=== PATIENT | female | born 1970 | race Caucasian/White ===

== ENCOUNTER → 2017-08-09 11:40 | Outpatient (CLI) | payer BC | END | disposition home or self-care (01) | LOC: D.MRI 11:40 | DX: M54.2 Cervicalgia (principal) ==

== ENCOUNTER 2018-06-30 05:35 | Day surgery (SDC) | payer BC ==
[2018-06-27 11:26] LABS: BASOPHILS 1.1 % (0-2); EOSINOPHILS 3.8 % (0-7); HEMATOCRIT 30.5 % (36.0-48.0); HEMOGLOBIN 9.2 g/dL (12-16); IMMATURE GRANULOCYTES 0.1 % (0-5); LYMPHOCYTES 21.9 % (15-50); MCH 21.8 pg (26.0-34.0); MCHC 30.2 g/dL (31.0-37.0); MCV 72.3 fL (80.0-100.0); MEAN PLATELET VOLUME 8.6 fL (7.4-10.4); NEUTROPHILS 65.1 % (40-80); PLATELET COUNT 368 10x3/uL (130-400); RBC 4.22 10x6/uL (4.00-5.40); RDW 16.7 % (11.5-14.5)
[2018-06-27 11:35] LABS: CALC OSMOLALITY 279 mosm/kg (275-300); CALCIUM 9.2 mg/dL (8.5-10.1); CARBON DIOXIDE 24.8 mmol/L (21.0-32.0); CHLORIDE - SERUM 102 mmol/L (98-107); CREATININE - SERUM 0.6 mg/dL (0.6-1.3); GLUCOSE 109 mg/dL (74-106); POTASSIUM - SERUM 4.3 mmol/L (3.5-5.1); SODIUM 138 mmol/L (136-145); UREA NITROGEN 20 mg/dL (7-18); eGFR NON AFRICAN AMERICAN > 90 mL/min (90-120)
[2018-06-30] VITALS (8 sets, daily range): BP systolic 100–121; BP diastolic 60–78; Ht 154.9 cm; Wt 52.7 kg
[~2018-06-30] VITALS: Ht 154.9 cm; Wt 52.7 kg
[~2018-06-30 05:35] MED LIST: OMEPRAZOLE20 M1 PO; TOPROL XL25 MG PO
[2018-06-30] MEDS ORDERED: IBUPROFEN400 MG PO (05:42)
[2018-06-30 06:08] LABS: HCG URINE NEGATIVE (NEGATIVE)
[2018-06-30] MEDS ORDERED: IBUPROFEN800 MG PO (11:20)
[2018-06-30] MEDS ORDERED: OXYCODONE-APAP1 T10 PO (11:20)
[2018-06-30] MEDS ORDERED: TOPROL XL25 MG PO (11:21)
--- NOTE | 2018-06-30 12:01 | NUR ---
SITTING UP IN CHAIR EATING LUNCH. ZOFRAN 4 MG GIVEN FOR NAUSEA.
--- NOTE | 2018-06-30 13:50 | NUR ---
DISCHARGE TO HOME. NO QUESTIONS NOTED.
--- NOTE | 2018-06-30 17:43 | OP ---
PATIENT NAME: ANTOLIN SPENCER MEDICAL RECORD: [id number] :70 LOCATION:D.OPS ADMISSION DATE: SURGEON: RAULITO CANELA MD DATE OF OPERATION: 06/30/2018 PREOPERATIVE DIAGNOSES: 1. Dysfunctional uterine bleeding. 2. Dysmenorrhea. POSTOPERATIVE DIAGNOSES: 1. Dysfunctional uterine bleeding. 2. Dysmenorrhea. 3. Suspect adenomyosis. PROCEDURES: 1. Diagnostic laparoscopy. 2. Bilateral salpingectomy. 3. Total laparoscopic hysterectomy. SURGEON: Raulito Canela MD PLANISHER: Alfred Barney. ANESTHESIOLOGIST: Burt Hand MD ANESTHESIA: General. FINDINGS: Uterus is enlarged and boggy. A tortuous uterine vasculature at the level of the internal os. No adnexal masses are noted. No evidence of active endometriosis. What was visualized of the abdominal anatomy was also unremarkable. SPECIMENS REMOVED: Bilateral tubes, uterus with cervix. SPECIMEN DISPOSITION: Pathology. ESTIMATED BLOOD LOSS: Less than or equal to 100 cc. URINE OUTPUT: Approximately 100 cc of clear urine. FLUIDS: 2.5 liters of lactated Ringer's. DRAINS: Etienne to gravity. COMPLICATIONS: None. INDICATIONS: The patient is a 48-year-old female with heavy periods. Periods have impact on quality of life and ability to work. The patient has also stated dysmenorrhea. The patient is consented for a total laparoscopic hysterectomy with bilateral salpingectomy and any indicated procedure. DESCRIPTION OF PROCEDURE: After informed consent was assured, the patient was taken to the operating room where anesthetic was obtained without difficulty. The patient is now prepped and draped in the usual sterile fashion. [facility] and a uterine OPERATIVE REPORT [id number] ANTOLIN SPENCER manipulator placed. The legs were now repositioned and an incision was made in the umbilicus to accommodate a 5-mm trocar. Through this trocar, pneumoperitoneum was developed and the patient is now in Trendelenburg position. Accessory ports were placed in the right and left lower quadrants. Through the left hand quadrant, a grasper was used to elevate the right tube. A coagulation cutter was now inserted into the right port and the attachments of the tube to the adnexa are now taken down. After removal of the tube, dissection began to cross the uterine ovarian ligaments and round ligaments. The anterior leaf of the broad ligament was opened and the bladder flap developed to the midline. The posterior leaf was opened. The vessels on the right side skeletonized. The vessels are now compressed and coagulated along the right side at the junction of the manipulator and the apex of the vagina. This is done by overlapping 3 burn paddle width. After the vessels were then interrupted, they are cut. This was repeated on the contralateral side. Again, a grasper being inserted from the right, left tube was elevated and then removed. The dissection again was carried out over the uteroovarian and round ligaments. The anterior leaf of the broad ligament was opened and the bladder flap fully developed. Posteriorly, the connective tissue was taken down. The vessels of the left side skeletonized, compressed, coagulated, and as before. Dissection now began in the cervix from the vagina. This is conducted in a 3-6 o'clock, then 6-3 o'clock method. Once the uterus was freed, it was pulled into the vagina. Inspection of the operative field reveals adequate hemostasis. Irrigant and blood was removed from the pelvis prior to turning off the gas. The gas is now turned off and the pneumoperitoneum released. The uterus was passed off the field to the attendant. Cuff is now closed in anterior to posterior fashion with interrupted Vicryl stitches from below. To facilitate this, a weighted speculum was introduced in the vagina and using a Shin retractor the apex of the incision was identified, grasped with the Allis clamp. Interrupted stitches were now placed from anterior to posterior fashion with a cuff completely closed. Reestablishment of the pneumoperitoneum reveals adequate hemostasis again. The pelvis was irrigated and irrigant removed. Interceed was now placed over the operative field. Sponge, lap, and needle count was correct times 2 at the close of the procedure. TRANSINT:[id number] Voice Confirmation ID: [id number] DOCUMENT ID: [id number] RAULITO CANELA MD at 1743 CC: [id number] DICTATION DATE: 06/30/18899 ONLINE MERCHANDISING MANAGER: 06/30/1845 [facility] 06/30/18 [facility] [address] [place] [address]
== END 2018-06-30 12:20 | disposition home or self-care (01) ==
LOC: D.OPS 05:35 → D.PAN 07:00 → D.OPS 07:00 → D.CVICU 08:47 → D.OPS 12:20
PROVIDERS: Obstetrics & Gynecology
DX: D25.0 Submucous leiomyoma of uterus (principal); N94.6 Dysmenorrhea, unspecified; Z01.812 Encounter for preprocedural laboratory examination